=== PATIENT | male | born 1990 | race Caucasian/White ===

== ENCOUNTER 2022-03-23 13:46 | Emergency (ER) | payer MEDICAID ==
[~2022-03-23] VITALS: Ht 175.3 cm; Wt 81.6 kg
[2022-03-23 13:46] VITALS: BP_SYST 115
--- NOTE | 2022-03-23 13:46 | NUR ---
BROUGHT IN BY [facility], PLACED IN BED #4 AND TRIAGED. REPORT GIVEN TO DUANE
--- NOTE | 2022-03-23 13:50 | NUR ---
Pt BETTYE GUDINO, a bystander called 911 due to pt being passed out in a [employer] parking lot. Medics arrived on scene and placed a 18g IV on left AC that is currently intact no infiltration noted. Medics stated they gave 1mg of Narcan in route. Pt arrived to ED and placed in room 4. pt is restless and agitated. Connected pt to lunchroom monitor. HR at 105, other vitals stable. Skin is intact warm and diaphoretic. NKA. Pt stated he smoked percocet. Poor historian. bed in lowest position.
--- NOTE | 2022-03-23 14:10 | NUR ---
Went to assess pt and pt was not in his room. Looked in bathroom and waiting room but pt was no where to be found. Checked storage room and pt was found squatting on the floor with pants down pooping on a bed myers. Assisted pt back to his bed and educated pt to not get out of bed due to the risks of falling. Pt verbalized understanding and reconnected pt to motor vehicle escort driver. HR elevated at [address] and other vitals stable. Dr. Vinson notified of incident. Bed in lowest position.
--- NOTE | 2022-03-23 14:20 | NUR ---
ER at bedside examining patient.
--- NOTE | 2022-03-23 14:41 | NUR ---
[employer] Department Chair [employer] M[employer] OPERATOR went to ER for pt. Jovani Bustos jr. . [employer] M[employer] OPERATOR spoke to Magalie. Azeb Dowell who stated they did not need anything for this patient.
--- NOTE | 2022-03-23 15:28 | NUR ---
Pt ambulated to restroom with steady gait. VSS.
--- NOTE | 2022-03-23 15:49 | NUR ---
Pt back to bed 4 with steady gait. No s/s of distress. VSS.
--- NOTE | 2022-03-23 17:45 | NUR ---
Patient given written and verbal discharge instructions and verbalizes understanding. ER MD discussed with patient the results and treatment provided. Patient in stable condition. ID arm band removed. IV catheter removed intact and dressing applied, no active bleeding. Opportunity for questions provided and answered. Medication side effect fact sheet provided.
[2022-03-23 17:50] VITALS: BP_SYST 105
== END 2022-03-23 17:45 | disposition home or self-care (01) ==
LOC: SED 13:46
DX: T40.2X1A Poisoning by other opioids, accidental (unintentional), initial encounter (principal); F11.20 Opioid dependence, uncomplicated; X58.XXXA Exposure to other specified factors, initial encounter; Y93.89 Activity, other specified; Y92.89 Other specified places as the place of occurrence of the external cause; Y99.8 Other external cause status
CPT/HCPCS: 99281; 99283